=== PATIENT | female | born 1970 | race Caucasian/White ===

== ENCOUNTER 2022-11-19 17:14 | Inpatient (IN) | payer OTHER ==
[~2022-11-19] VITALS: Ht 157.5 cm; Wt 97.2 kg
[2022-11-19] MEDS ORDERED: KETOROLAC 30MG/ML VIAL IV STA (17:33)
[2022-11-19] MEDS ORDERED: DIPHENHYDRAMINE 50MG/ML VIAL IV ONE (17:45)
[2022-11-19] MEDS ORDERED: METOCLOPRAMIDE HCL 10MG/2ML VIAL IV ONE (17:45)
[2022-11-19] MEDS ORDERED: ACETAMINOPHEN 325MG TABLET PO ONE (17:45)
[2022-11-19] MEDS ORDERED: SODIUM CHLORIDE 0.9% 1000ML BAG (SEPSIS BOLUS) IV ONE (17:45)
[2022-11-19 18:15] LABS: CLARITY URINE TURBID (CLEAR); COLOR URINE YELLOW (YELLOW); GLUCOSE URINE NEGATIVE (NEGATIVE); KETONES URINE NEGATIVE (NEGATIVE); LEUKOCYTE ESTERASE URINE 2+ (NEGATIVE); NITRITE URINE POSITIVE (NEGATIVE); OCCULT BLOOD URINE 3+ (NEGATIVE); PH URINE 6.5 (4.5-8.0); PROTEIN URINE 3+ (NEGATIVE); SPECIFIC GRAVITY URINE 1.017 (1.005-1.030)
[2022-11-19 18:21] LABS: BASOPHILS % 0.2 % (0.0-2.0); EOSINOPHILS % 0.1 % (0.0-5.0); HEMATOCRIT. 31.1 % (36.0-48.0); HEMOGLOBIN. 9.6 g/dL (12.0-16.0); LYMPHOCYTES % 7.6 % (20.0-50.0); MEAN CORPUSCULAR HEMOGLOBIN 20.8 pg (28.0-32.0); MEAN CORPUSCULAR HGB CONC 30.9 g/dL (31.0-37.0); MEAN CORPUSCULAR VOLUME 67.3 fL (81.0-99.0); MEAN PLATELET VOLUME 8.8 fl (7.4-10.4); MONOCYTES % 7.4 % (2.0-8.0); NEUTROPHILS % 84.7 % (40.0-76.0); PLATELET 332 x1000/uL (130-400); RED BLOOD CELL COUNT 4.63 mill/uL (4.2-5.4); RED CELL DISTRIBUTION WIDTH 21.5 % (11.6-14.6); WHITE BLOOD COUNT 14.3 x1000/uL (4.5-11.0)
[2022-11-19 18:25] LABS: ADD RBC MORPHOLOGY YES; DIFFERENTIAL COMMENT 1
[2022-11-19 18:34] LABS: CHLORIDE 105 mEq/L (98-107); HCG SCREEN NEGATIVE; INDEX HEMOLYSI 1 (1-3); INDEX ICTERIC 1 (1-4); INDEX LIPEMIC 1 (1-3); POTASSIUM 3.2 mEq/L (3.5-5.1); SODIUM 137 mEq/L (136-145)
[2022-11-19 18:43] LABS: ALANINE AMINOTRANSFERASE 23 IU/L (13-61); ASPARTATE AMINOTRANSFERASE 12 IU/L (15-37); BILIRUBIN TOTAL 0.5 mg/dL (0.1-1.0); CALCIUM 8.7 mg/dL (8.5-10.1); CARBON DIOXIDE 24 mEq/L (21-32); CREATININE 0.8 mg/dL (0.6-1.3); GLUCOSE 153 mg/dL (70-105); NT PRO B-TYPE NATRIURETIC PEP 189 pg/mL (5-125); TROPONIN I HIGH SENSITIVITY 41 ng/L (<54); UREA NITROGEN BLOOD 12 mg/dL (7-21)
[2022-11-19 18:44] LABS: BACTERIA URINE 3+; RBC URINE 15-25 /hpf (0-2); SQUAMOUS EPITHELIAL CELL URINE 2+ /lpf (RARE/1+)
[2022-11-19 18:45] LABS: TRICHOMONAS URINE 2+
[2022-11-19 18:48] LABS: LACTIC ACID 2.6 mmol/L (0.4-2.0)
[2022-11-19] MEDS ORDERED: VANCOMYCIN 1G PREMIX 200 ML IV SCH (19:00)
[2022-11-19] MEDS ORDERED: CEFTRIAXONE 1GM PREMIX 50 ML IV ONE (19:00)
[2022-11-19 19:20] LABS: HYPOCHROMASIA 1+; MICROCYTOSIS 3+; PLATELET ESTIMATE NORMAL
[2022-11-19 19:21] LABS: OVALOCYTES 1+
[2022-11-20 04:00] VITALS: BP 170/90; PULSE 115; RESP 20; TEMP 102
[2022-11-20] MEDS ORDERED: HYDROCODONE/ACETAMINOPHEN 10/325MG TABLET PO PRN (04:00)
[2022-11-20] MEDS ORDERED: ONDANSETRON HCL 4MG/2ML INJ IV PRN (04:00)
[2022-11-20] MEDS: ACETAMINOPHEN 325MG TABLET PO PRN ×2 (04:23→16:38)
[2022-11-20] MEDS: CLONIDINE 0.1MG TABLET PO PRN (04:24)
[2022-11-20] MEDS: AMLODIPINE 10MG TABLET PO SCH ×2 (04:24→09:55)
[2022-11-20] MEDS: METOPROLOL TARTRATE 50MG TABLET PO SCH ×3 (04:25→22:07)
[2022-11-20] MEDS ORDERED: LISINOPRIL PO (04:34)
[2022-11-20 06:00] VITALS: BP 140/65; PULSE 85; RESP 20; TEMP 100
[2022-11-20] MEDS ORDERED: SODIUM CHL 0.9% + KCL 20MEQ/L 1,000 ML IV SCH (06:00)
[2022-11-20 08:00] VITALS: BP 130/54; PULSE 87; RESP 18; TEMP 96.7
[2022-11-20] MEDS: SODIUM CHL 0.9% + KCL 20MEQ/L 1,000 ML IV SCH ×2 (09:55→22:19)
[2022-11-20] MEDS: ENOXAPARIN 40MG/0.4ML SYR SUBCUT SCH (09:55)
[2022-11-20 11:03] LABS: HEMATOCRIT 29.5 % (36.0-48.0); MEAN CORPUSCULAR HEMOGLOBIN 20.8 pg (28.0-32.0); MEAN CORPUSCULAR HGB CONC 30.5 g/dL (31.0-37.0); MEAN CORPUSCULAR VOLUME 68.2 fL (81.0-99.0); PLATELET 309 x1000/uL (130-400); RED BLOOD CELL COUNT 4.33 mill/uL (4.2-5.4); RED CELL DISTRIBUTION WIDTH 21.4 % (11.6-14.6); WHITE BLOOD COUNT 12.1 x1000/uL (4.5-11.0)
[2022-11-20 11:17] LABS: ALANINE AMINOTRANSFERASE 29 IU/L (13-61); ALBUMIN 2.7 g/dL (3.4-5.0); ASPARTATE AMINOTRANSFERASE 24 IU/L (15-37); BILIRUBIN TOTAL 0.5 mg/dL (0.1-1.0); CALCIUM 7.9 mg/dL (8.5-10.1); CARBON DIOXIDE 26 mEq/L (21-32); CHLORIDE 107 mEq/L (98-107); CREATININE 0.8 mg/dL (0.6-1.3); GLUCOSE 126 mg/dL (70-105); INDEX HEMOLYSI 1 (1-3); INDEX ICTERIC 1 (1-4); INDEX LIPEMIC 1 (1-3); POTASSIUM 3.2 mEq/L (3.5-5.1); PROTEIN TOTAL 7.3 g/dL (6.0-8.3); SODIUM 139 mEq/L (136-145); UREA NITROGEN BLOOD 11 mg/dL (7-21)
[2022-11-20 12:00] VITALS: BP 138/64; PULSE 81; RESP 18; TEMP 97.5
[2022-11-20 16:00] VITALS: BP 151/78; PULSE 104; RESP 18; TEMP 103
[2022-11-20] MEDS ORDERED: NALOXONE HCL 0.4MG/ML VIAL IV PRN (20:45)
[2022-11-20] MEDS: CEFTRIAXONE 1,000 MG in DEXTROSE 5% WATER 50 ML IV SCH (22:06)
[2022-11-21] VITALS: BP 178/92; PULSE 102; RESP 22; TEMP 102.9
[2022-11-21] MEDS: CLONIDINE 0.1MG TABLET PO PRN (00:58)
[2022-11-21 08:00] VITALS: BP 163/74; PULSE 98; RESP 20; TEMP 103.1
[2022-11-21] MEDS: ENOXAPARIN 40MG/0.4ML SYR SUBCUT SCH (08:48)
[2022-11-21] MEDS: AMLODIPINE 10MG TABLET PO SCH (08:56)
[2022-11-21] MEDS: METOPROLOL TARTRATE 50MG TABLET PO SCH ×2 (08:56→20:25)
[2022-11-21] MEDS ORDERED: HYDRALAZINE HCL 50MG TABLET PO NR (10:45)
[2022-11-21 12:00] VITALS: BP 126/69; PULSE 85; RESP 18; TEMP 100.2
[2022-11-21] MEDS: ACETAMINOPHEN 325MG TABLET PO PRN (14:13)
[2022-11-21] MEDS: SODIUM CHL 0.9% + KCL 20MEQ/L 1,000 ML IV SCH (14:14)
[2022-11-21 16:00] VITALS: BP 146/74; PULSE 85; RESP 20; TEMP 97.5
[2022-11-21 20:00] VITALS: BP 165/86; PULSE 83; RESP 17; TEMP 98.4
[2022-11-21] MEDS: HYDRALAZINE HCL 50MG TABLET PO SCH (20:25)
[2022-11-21] MEDS: CEFTRIAXONE 1,000 MG in DEXTROSE 5% WATER 50 ML IV SCH (20:25)
[2022-11-22] VITALS (7 sets, daily range): BP systolic 125–160; BP diastolic 70–87; PULSE 76–95; RESP 17–20; TEMP 97.1–100; O2SAT 99
[2022-11-22] MEDS: ACETAMINOPHEN 325MG TABLET PO PRN ×2 (00:56→18:05)
[2022-11-22] MEDS: SODIUM CHL 0.9% + KCL 20MEQ/L 1,000 ML IV SCH ×2 (00:56→18:06)
[2022-11-22] MEDS ORDERED: LEVO750T68 MT (07:58)
[2022-11-22] MEDS ORDERED: HYDR100T26 MT (07:58)
[2022-11-22] MEDS: METOPROLOL TARTRATE 50MG TABLET PO SCH ×2 (08:32→20:19)
[2022-11-22] MEDS: ENOXAPARIN 40MG/0.4ML SYR SUBCUT SCH (08:33)
[2022-11-22] MEDS: AMLODIPINE 10MG TABLET PO SCH (08:33)
[2022-11-22] MEDS: HYDRALAZINE HCL 50MG TABLET PO SCH ×2 (08:35→20:19)
[2022-11-22] MEDS: CEFTRIAXONE 1,000 MG in DEXTROSE 5% WATER 50 ML IV SCH (20:19)
== END 2022-11-22 21:50 | disposition home or self-care (01) | DRG 720 ==
LOC: ER 18:52 → EDBD 18:52 → MICUSO 21:21 → 8WST 11-20 03:39
PROVIDERS: ADMIT Internal Medicine; ATTEND Internal Medicine
DX: A41.51 Sepsis due to Escherichia coli [E. coli] (principal); E44.0 Moderate protein-calorie malnutrition; I11.9 Hypertensive heart disease without heart failure; Z20.822 Contact with and (suspected) exposure to COVID-19; E87.6 Hypokalemia; R65.20 Severe sepsis without septic shock; Z68.39 Body mass index [BMI] 39.0-39.9, adult; I16.0 Hypertensive urgency; E66.9 Obesity, unspecified; N39.0 Urinary tract infection, site not specified; D50.9 Iron deficiency anemia, unspecified; Z79.899 Other long term (current) drug therapy
CPT/HCPCS: 36415; 71045; 80053; 81003; 83605; 83880; 84145; 84484; 84703; 85025; 85027; 87077; 87186; 87426; 93005; 99291; C9803; J0696; J1200; J1650; J1885; J2405; J2765; J3370; J3480; J7030; J7060